=== PATIENT | male | born 1930 | race Caucasian/White ===

== ENCOUNTER → 2017-07-25 | Outpatient (CLI) | payer OTHER ==
[~2017-07-25] MED LIST: ACET-1600 PO; ALPR0.25 PO; ATOR40TA78 PO; AZEL137S4 NAS; CART5DRO RIGHTEYE; CHOL2000 PO; CYAN1TAB29 PO; DIPH25CA61 PO; FAMC500T33 PO; FLUT9.9S NAS; GABA-827 PO; GINK120T3 PO; HYDR-3237 PO; IBUP-1484 PO; LACT1CAP35 PO; LEVO25TA4 PO; LIDO35.46 TP; LOSA50TA6 PO; LUTE20CA2 PO; METO25TA35 PO; MULT-6 PO; OMEP-110 PO; OXYC5TAB3 PO; POLY17PO5 PO; PRESSER VISION PO; TERA10CA3 PO; VIT1TABL34 PO; WARF5TAB7 PO
[2017-07-25 13:43] LABS: HEMATOCRIT 38.4 % (39.2-51.8); HEMOGLOBIN 12.8 g/dL (13.7-18.0); WHITE BLOOD COUNT 5.8 x10^3/uL (3.4-10)
[2017-07-25 13:46] LABS: PATH.CAST-FLAG NOT PRESENT; SPERM-FLAG NOT PRESENT; SRC-FLAG NOT PRESENT; XTAL-FLAG NOT PRESENT; YLC-FLAG NOT PRESENT
[2017-07-25 13:55] LABS: ASPARTATE AMINO TRANSFERASE 19 U/L (15-37); BLOOD UREA NITROGEN 20 mg/dL (7-18)
== END | disposition home or self-care (01) ==
LOC: STAR 12:24
PROVIDERS: ATTEND Urology
DX: Z01.818 Encounter for other preprocedural examination (principal); C61 Malignant neoplasm of prostate; R94.31 Abnormal electrocardiogram [ECG] [EKG]; R79.1 Abnormal coagulation profile; R82.99 Other abnormal findings in urine; Z85.51 Personal history of malignant neoplasm of bladder
CPT/HCPCS: 36415; 80053; 81001; 85025; 85610; 85730; 87086; 93005

== ENCOUNTER 2017-08-02 11:42 | Day surgery (SDC) | payer OTHER ==
[2017-07-25 12:51] VITALS: BP 162/76
[~2017-08-02] VITALS: Ht 172.7 cm; Wt 106.0 kg
[2017-08-02] MEDS ORDERED: LACTATED RINGERS 1,000 ML IV SCH (12:38)
[2017-08-02] MEDS ORDERED: LIDOCAINE 1%, 2ML SQ PRN (13:00)
[2017-08-02] MEDS ORDERED: FENTANYL PF 100 MCG/2ML ONE ×2 (13:48)
[2017-08-02] MEDS ORDERED: PROPOFOL 10 MG/ML, 20ML ONE (13:49)
[2017-08-02] MEDS ORDERED: CIPROFLOXACIN 400MG/200ML PMX ONE (14:46)
[2017-08-02] MEDS ORDERED: ROCURONIUM 10 MG/ML ONE (14:46)
[2017-08-02] MEDS ORDERED: SUCCINYLCHOLINE 20 MG/ML, 10ML ONE (14:46)
[2017-08-02] MEDS ORDERED: HYDROmorphone 1 MG/ML, 1ML IV PRN (15:00)
[2017-08-02] MEDS ORDERED: ONDANSETRON 2MG/ML, 2ML IVPush PRN (15:00)
[2017-08-02] MEDS ORDERED: ACETAMINOPHEN 325 MG TABLET PO PRN (15:00)
[2017-08-02] MEDS ORDERED: FENTANYL PF 100 MCG/2ML IV PRN (15:00)
[2017-08-02] MEDS ORDERED: HYDROcodone/APAP 7.5-325MG/15ML UDC PO PRN (15:00)
[2017-08-02] MEDS ORDERED: OXYcodone 5 MG/5 ML ORAL.SOL UDC PO PRN (15:00)
[2017-08-02] MEDS ORDERED: OPIUM/BELLADONNA SUPP.RECT 16.2-60 MG ONE (15:51)
== END 2017-08-02 17:30 ==
LOC: OUT 11:42
PROVIDERS: ATTEND Urology
DX: C67.9 Malignant neoplasm of bladder, unspecified (principal); N30.20 Other chronic cystitis without hematuria; I10 Essential (primary) hypertension; I25.2 Old myocardial infarction; Z86.73 Personal history of transient ischemic attack (TIA), and cerebral infarction without residual deficits; Z87.39 Personal history of other diseases of the musculoskeletal system and connective tissue; Z88.1 Allergy status to other antibiotic agents; Z88.0 Allergy status to penicillin; I25.10 Atherosclerotic heart disease of native coronary artery without angina pectoris
CPT/HCPCS: 36415; 52235; 85610; 85730; 88305; C1769; J0330; J0744; J2704; J3010